=== PATIENT | female | born 1945 | race Caucasian/White ===

== ENCOUNTER 2021-09-28 11:54 | Observation (INO) | payer MEDICARE ==
--- NOTE | 2021-09-28 12:17 | XRAY ---
Indication: Facial weakness. Speech problems. Stroke. Multiple contiguous axial images obtained through the head without contrast. Comparison: December 31, 2011. Age-appropriate global atrophy and minimal periventricular degenerative micro-ischemia bilaterally. No acute intracranial hemorrhage, abnormal extra-axial fluid collection, or mass effect. Fourth ventricle is midline without hydrocephalus. Villagomez-white matter differentiation preserved. Bony calvarium intact. Paranasal sinuses and mastoid air cells are clear. Impression: Nonacute senile brain.
--- NOTE | 2021-09-28 12:40 | ERPHSYRPT ---
- History of Present Illness Source: patient, EMS Exam Limitations: clinical condition Patient Subjective Stated Complaint: Ems states "She was at [employer] eating and she started to stare off so an employee tried to speak to her and she would not respond, she was slurring her speech at first and she got better and better as we were coming here." Triage Nursing Assessment: PT presented alert and oriented X 3, skin wpd Pt able to speak in full sentences. Pt speech slightly slurred. pt in no apparent respiratory distress. PT resting comfortably on the bed. Physician History: 76 yo wf w acute mental status changes w expressive aphasia while at [facility] before arrival w rapidly improving symptoms. Pt is alert and oriented to Name/place but not time. She is in Afib and states that she is taking a anticoagulant. Pt wo focal weakness or pronator drift upon arrival. Timing/Duration: other (Resolving prior to arrival) Character of Deficits: other (Mild confusion) Deficits: no difficulties Baseline/Normal Cognition: alert oriented x 3 Current Cognition: alert but confused Associated Symptoms: confusion, loss of consciousness, No fatigue, No fever, No chills, No nausea, No vomiting, No weakness, No insomnia, No muscle spasms, No numbness/tingling in legs/feet, No paresthesia, No ringing in ears, No seizures, No slurred speech, No trouble walking, No vision changes, No chest pain, No head ache Allergies/Adverse Reactions: amitriptyline HCl [From Elavil] Allergy (Mild, Verified 12/31/11 19:40) MAKES FEEL FUNNY AND FLUSHED FACE Home Medications: Ezetimibe 10 mg [Zetia 10 MG] 10 mg PO DAILY 12/31/11 [History] Atorvastatin Calcium 40 mg PO QHS 09/28/21 [History] Buspirone HCl 5 mg [Buspar 5 mg] 5 mg PO BID 09/28/21 [History] Clopidogrel Bisulfate [Clopidogrel] 75 mg PO DAILY 09/28/21 [History] Metoprolol Tartrate 25 mg [Lopressor 25MG Tab] 25 mg PO BID 09/28/21 [History] Nitroglycerin 0.4 mg SL UD 09/28/21 [History] Pantoprazole Sodium 40 mg PO DAILY 09/28/21 [History] Quinapril HCl 10 mg [Accupril 10MG Tablet] 10 mg PO DAILY 09/28/21 [History] Hx Tetanus, Diphtheria Vaccination/Date Given: No Hx Influenza Vaccination/Date Given: Yes (FALL 2010) Hx Pneumococcal Vaccination/Date Given: Yes (2 YRS AGO) Immunizations Up to Date: Yes Travel Risk - International Travel Have you traveled outside of the country in past 3 weeks: No - Coronavirus Screening Are you exhibiting any of the following symptoms?: No Close contact with a COVID-19 positive Pt in past 14-21 Days: No - Vaccine Status Have you recieved a Covid-19 vaccination: Yes 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 - Vaccination Dates Date of 2cond Vaccination (if applicable): 2020 - Review of Systems Constitutional: No Symptoms Eyes: No Symptoms Ears, Nose, & Throat: No Symptoms Respiratory: No Symptoms Cardiac: No Symptoms Abdominal/Gastrointestinal: No Symptoms Genitourinary Symptoms: No Symptoms Musculoskeletal: No Symptoms Skin: No Symptoms Neurological: Speech Changes, No Dizziness, No Focal Weakness, No Gait Changes, No Headache, No Irritability, No Lethargy, No Paralysis, No Parasthesia, No Seizure, No Sensory Changes, No Tics, No Tremors, No Vertigo Psychological: No Symptoms Endocrine: No Symptoms Hematologic/Lymphatic: No Symptoms Immunological/Allergic: No Symptoms - Past Medical History Pertinent Past Medical History: Yes Neurological History: No Pertinent History ENT History: Cataracts, Macular Degeneration Cardiac History: High Cholesterol, Hypertension Respiratory History: Asthma Endocrine Medical History: Diabetes Type II Musculoskeletal History: Fibromyalgia GI Medical History: GERD History: No Pertinent History Psycho-Social History: Depression Female Reproductive Disorders: No Pertinent History Other Medical History: SOJGRENS SYNDROME - Past Surgical History Past Surgical History: No Neuro Surgical History: No Pertinent History Cardiac: No Pertinent History Respiratory: No Pertinent History Gastrointestinal: No Pertinent History Genitourinary: No Pertinent History Musculoskeletal: No Pertinent History Female Surgical History: No Pertinent History - Social History Smoking Status: Former smoker Exposure to second hand smoke: No Drug Use: none Patient Lives Alone: Yes Significant Family History: no pertinent family hx - Nursing Vital Signs Nursing Vital Signs: Initial Vital Signs Temperature 97.5 F 09/28/21 11:56 Pulse Rate 93 H 09/28/21 11:56 Respiratory Rate 09/28/21 11:56 Blood Pressure 136/93 09/28/21 11:56 O2 Sat by Pulse Oximetry 95 09/28/21 11:56 Pain Scale Pain Intensity 0 WNL - Jenny Coma Scale Best Eye Response (Jenny): (4) open spontaneously Best Verbal Response (Jenny): (4) confused conversation Best Motor Response (Jenny): (6) obeys commands [place] Total: 14 - Physical Exam General Appearance: no apparent distress Eye Exam: bilateral eye: normal inspection, PERRL, EOMI Ears, Nose, Throat Exam: normal ENT inspection, TMs normal, pharynx normal, moist mucous membranes Neck Exam: normal inspection, non-tender, supple, full range of motion, No meningismus, No mass, No Brudzinski, No Kernig's, No carotid bruit Respiratory: normal breath sounds, lungs clear, airway intact Cardiovascular: capillary refill <2 sec, other (Ir-Ir) Gastrointestinal: soft, normal bowel sounds Back Exam: normal inspection, normal range of motion, No CVA tenderness, No vertebral tenderness Extremity Exam: normal inspection, normal range of motion Peripheral Pulses: carotid (R): 2+, carotid (L): 2+ Mental Status: 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, 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, 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: normal hearing, normal speech, PERRL, No abnormal eye position, No abnormal gag reflex, No abnormal pupil position, No abnormal speech, No facial asymmetry, No facial droop, No facial paresthesias, No facial weakness, No gaze palsy, No hearing deficit (R), No hearing deficit (L), No tongue deviation to R, No tongue deviation to L, No tongue midline Coordination/Gait: normal finger to nose, normal cerebellar function, negative Romberg's sign Motor/Sensory: no motor deficit, no sensory deficit, no pronator drift, negative Babinski's sign, No pronator drift (R), No pronator drift (L), No sensory deficit, No weak motor strength RUE, No weak motor strength LUE, No weak motor strength RLE, No weak motor strength LLE DTR: bicep (R): 2+, bicep (L): 2+, knee (R): 2+, knee (L): 2+ Skin Exam: normal color, warm, dry SpO2 Interpretation: normal SpO2: 95 O2 Delivery: Room Air - Course Nursing assessment & vital signs reviewed: Yes EKG Interpreted by Me: RATE (Afib/R97/Normal QT-QTc/Low voltage/Flat Twaves/No acute ST changes) - CT Exams Head CT Interpretation: Discussed w/radiologist (No intra-cranial bleed/Infarct) Ordered Tests: Active Orders 24 hr Category Date Time Status EKG-ER Only STAT Care 09/28/21 12:17 Completed IV Insertion STAT Care 09/28/21 12:17 Completed Consult Tele-Health [Tele-Health Consult] ROUTINE Cons 09/28/21 13:15 Completed Clear Liquid Diet 09/28/21 Breakfast Active HEAD WITHOUT CONTRAST [CT] Stat Exams 09/28/21 11:55 Completed MRA BRAIN WITHOUT CONTRAST [MRI] Stat Exams 09/28/21 12:31 Completed MRI BRAIN W/O CONTRAST [MRI] Stat Exams 09/28/21 12:30 Completed CBC W DIFF AM.LAB Lab 09/29/21 04:00 Ordered CBC W DIFF Stat Lab 09/28/21 11:23 Completed CMP AM.LAB Lab 09/29/21 04:00 Ordered CMP Stat Lab 09/28/21 11:23 Completed CULTURE,URINE Stat Lab 09/28/21 15:03 Received PROTIME WITH INR Stat Lab 09/28/21 11:23 Completed PTT Stat Lab 09/28/21 11:23 Completed TROPONIN Q3H Lab 09/28/21 11:23 Completed TROPONIN Q3H Lab 09/28/21 16:55 Completed TROPONIN Q3H Lab 09/28/21 18:25 Completed TROPONIN Q3H Lab 09/28/21 21:45 Completed TROPONIN Q3H Lab 09/29/21 00:30 Ordered UA W/RFX CULTURE Stat Lab 09/28/21 15:03 Completed Transfer Order Routine Transfer 09/28/21 Completed Medication Summary Generic Name Dose Route Start Last Admin Trade Name Freq PRN Reason Stop Dose Admin Buspirone HCl 5 mg 09/28/21 22:00 09/28/21 21:56 Buspirone Hcl 5 Mg Tablet PO 10/28/21 21:59 5 mg BID PATTI Administration Sodium Chloride 1,000 mls @ 0 mls/hr 09/28/21 17:30 Sodium Chloride 0.9% 1000 Ml IV 10/28/21 17:29 .Q0M PATTI KVO Metoprolol Tartrate 25 mg 09/28/21 22:00 09/28/21 21:56 Metoprolol Tartrate 25 Mg Tab PO 10/28/21 21:59 25 mg BID PATTI Administration Ondansetron HCl 4 mg 09/28/21 17:29 Ondansetron Hcl 4 Mg/2 Ml Vial IV 10/28/21 17:28 Q6H PRN PRN NAUSEA/VOMITING Simvastatin 40 mg 09/28/21 22:00 09/28/21 21:56 Simvastatin 20 Mg Tablet PO 10/28/21 21:59 40 mg HS PATTI Administration Discontinued Medications Generic Name Dose Route Start Last Admin Trade Name Freq PRN Reason Stop Dose Admin Metoprolol Tartrate 25 mg 09/28/21 16:45 09/28/21 16:48 Metoprolol Tartrate 25 Mg Tab PO 09/28/21 16:46 25 mg STAT ONE Administration Metoprolol Tartrate Confirm 09/28/21 16:47 Metoprolol Tartrate 25 Mg Tab Administered 09/28/21 16:48 Dose 25 mg .ROUTE .STK-MED ONE Quinapril HCl 10 mg 09/28/21 16:46 09/28/21 16:52 Quinapril 10mg Tab PO 09/28/21 16:47 10 mg STAT ONE Administration Rivaroxaban 20 mg 09/28/21 17:00 09/28/21 17:12 Rivaroxaban 10 Mg Tablet PO 09/28/21 17:01 20 mg STAT ONE Administration Trimethoprim/Sulfamethoxazole 1 tab 09/28/21 18:53 09/28/21 18:57 Smz/Tmp Ds Tablet 1 Tablet PO 09/28/21 18:54 1 tab STAT STA Administration Trimethoprim/Sulfamethoxazole Confirm 09/28/21 18:56 Smz/Tmp Ds Tablet 1 Tablet Administered 09/28/21 18:57 Dose 1 tab PO .STK-MED ONE Lab/Rad Data: Laboratory Result Diagrams 09/28/21 11:23 09/28/21 11:23 Laboratory Results 09/28/21 09/28/21 09/28/21 Range/Units 18:25 16:55 16:50 WBC (4.0-10.5) K/mm3 RBC (4.1-5.4) M/mm3 Hgb (12.0-16.0) gm/dl Hct (35-47) % MCV (78-100) fl MCH (26-32) pg MCHC (32-36) g/dl RDW (11.5-14.0) % Plt Count (150-450) K/mm3 MPV (7.5-11.0) fl Gran % (36.0-66.0) % Eos # (Auto) (0-0.5) Absolute Lymphs (auto) (1.0-4.6) Absolute Monos (auto) (0.0-1.3) Lymphocytes % (24.0-44.0) % Monocytes % (0.0-12.0) % Eosinophils % (0.00-5.0) % Basophils % (0.0-0.4) % Absolute Granulocytes (1.4-6.9) Basophils # (0-0.4) PT (9.4-12.5) SECONDS INR (0.8-3.0) APTT (25.1-36.5) SECONDS Sodium (137-145) mmol/L Potassium (3.5-5.1) mmol/L Chloride (98-107) mmol/L Carbon Dioxide (22-30) mmol/L Anion Gap (5-15) MEQ/L BUN (7-17) mg/dL Creatinine (0.52-1.04) mg/dL Estimated GFR ML/MIN Glucose (74-106) mg/dL Calcium (8.4-10.2) mg/dL Total Bilirubin (0.2-1.3) mg/dL AST (14-36) U/L ALT (0-35) U/L Alkaline Phosphatase (38-126) U/L Troponin I < 0.012 < 0.012 (0.000-0.034) ng/mL Serum Total Protein (6.3-8.2) g/dL Albumin (3.5-5.0) g/dL Urinalys Dipstick Clnc Urine Color (YELLOW) Urine Appearance (CLEAR) Urine pH (5-6) Ur Specific [place] (1.005-1.025) POC Urine Protein Conf (Negative) Urine Ketones (NEGATIVE) Urine Nitrite (NEGATIVE) Urine Bilirubin (NEGATIVE) Urine Urobilinogen (0-1) mg/dL Urine Leukocytes (NEGATIVE) Urine WBC (Auto) (0-5) /HPF Urine RBC (Auto) (0-2) /HPF U Epithel Cells (Auto) (FEW) /HPF Urine Bacteria (Auto) (NEGATIVE) /HPF Urine RBC (0-5) Marcial/ul Urine Mucus (Auto) (NEGATIVE) /HPF Ur Culture Indicated? Urine Glucose (NEGATIVE) mg/dL Influenza Type A Ag NEGATIVE (NEGATIVE) Influenza Type B Ag NEGATIVE (NEGATIVE) RSV (PCR) NEGATIVE (Negative) SARS-CoV-2 (PCR) NEGATIVE (NEGATIVE) 09/28/21 09/28/21 09/28/21 Range/Units 15:03 11:23 11:23 WBC (4.0-10.5) K/mm3 RBC (4.1-5.4) M/mm3 Hgb (12.0-16.0) gm/dl Hct (35-47) % MCV (78-100) fl MCH (26-32) pg MCHC (32-36) g/dl RDW (11.5-14.0) % Plt Count (150-450) K/mm3 MPV (7.5-11.0) fl Gran % (36.0-66.0) % Eos # (Auto) (0-0.5) Absolute Lymphs (auto) (1.0-4.6) Absolute Monos (auto) (0.0-1.3) Lymphocytes % (24.0-44.0) % Monocytes % (0.0-12.0) % Eosinophils % (0.00-5.0) % Basophils % (0.0-0.4) % Absolute Granulocytes (1.4-6.9) Basophils # (0-0.4) PT 10.6 (9.4-12.5) SECONDS INR 1.00 (0.8-3.0) APTT 23.9 L (25.1-36.5) SECONDS Sodium (137-145) mmol/L Potassium (3.5-5.1) mmol/L Chloride (98-107) mmol/L Carbon Dioxide (22-30) mmol/L Anion Gap (5-15) MEQ/L BUN (7-17) mg/dL Creatinine (0.52-1.04) mg/dL Estimated GFR ML/MIN Glucose (74-106) mg/dL Calcium (8.4-10.2) mg/dL Total Bilirubin (0.2-1.3) mg/dL AST (14-36) U/L ALT (0-35) U/L Alkaline Phosphatase (38-126) U/L Troponin I < 0.012 (0.000-0.034) ng/mL Serum Total Protein (6.3-8.2) g/dL Albumin (3.5-5.0) g/dL Urinalys Dipstick Clnc MAIN LAB Urine Color YELLOW (YELLOW) Urine Appearance CLEAR (CLEAR) Urine pH 7.0 (5-6) Ur Specific [place] 1.015 (1.005-1.025) POC Urine Protein Conf NEGATIVE (Negative) Urine Ketones NEGATIVE (NEGATIVE) Urine Nitrite NEGATIVE (NEGATIVE) Urine Bilirubin NEGATIVE (NEGATIVE) Urine Urobilinogen 0.2 (0-1) mg/dL Urine Leukocytes SMALL (NEGATIVE) Urine WBC (Auto) 11-15 (0-5) /HPF Urine RBC (Auto) NONE (0-2) /HPF U Epithel Cells (Auto) RARE (FEW) /HPF Urine Bacteria (Auto) NONE SEEN (NEGATIVE) /HPF Urine RBC NEGATIVE (0-5) Marcial/ul Urine Mucus (Auto) SLIGHT (NEGATIVE) /HPF Ur Culture Indicated? YES Urine Glucose NEGATIVE (NEGATIVE) mg/dL Influenza Type A Ag (NEGATIVE) Influenza Type B Ag (NEGATIVE) RSV (PCR) (Negative) SARS-CoV-2 (PCR) (NEGATIVE) 09/28/21 09/28/21 Range/Units 11:23 11:23 WBC 7.5 (4.0-10.5) K/mm3 RBC 5.06 (4.1-5.4) M/mm3 Hgb 13.7 (12.0-16.0) gm/dl Hct 44.6 (35-47) % MCV 88.1 (78-100) fl MCH 27.1 (26-32) pg MCHC 30.7 L (32-36) g/dl RDW 16.6 H (11.5-14.0) % Plt Count 301 (150-450) K/mm3 MPV 10.5 (7.5-11.0) fl Gran % 66.2 H (36.0-66.0) % Eos # (Auto) 0.18 (0-0.5) Absolute Lymphs (auto) 1.49 (1.0-4.6) Absolute Monos (auto) 0.84 (0.0-1.3) Lymphocytes % 20.0 L (24.0-44.0) % Monocytes % 11.3 (0.0-12.0) % Eosinophils % 2.4 (0.00-5.0) % Basophils % 0.1 (0.0-0.4) % Absolute Granulocytes 4.94 (1.4-6.9) Basophils # 0.01 (0-0.4) PT (9.4-12.5) SECONDS INR (0.8-3.0) APTT (25.1-36.5) SECONDS Sodium 137 (137-145) mmol/L Potassium 4.1 (3.5-5.1) mmol/L Chloride 103 (98-107) mmol/L Carbon Dioxide 24 (22-30) mmol/L Anion Gap 13.6 (5-15) MEQ/L BUN 15 (7-17) mg/dL Creatinine 0.59 (0.52-1.04) mg/dL Estimated GFR > 60.0 ML/MIN Glucose 130 H (74-106) mg/dL Calcium 9.2 (8.4-10.2) mg/dL Total Bilirubin 0.80 (0.2-1.3) mg/dL AST 30 (14-36) U/L ALT 15 (0-35) U/L Alkaline Phosphatase 184 H (38-126) U/L Troponin I (0.000-0.034) ng/mL Serum Total Protein 8.8 H (6.3-8.2) g/dL Albumin 4.5 (3.5-5.0) g/dL Urinalys Dipstick Clnc Urine Color (YELLOW) Urine Appearance (CLEAR) Urine pH (5-6) Ur Specific [place] (1.005-1.025) POC Urine Protein Conf (Negative) Urine Ketones (NEGATIVE) Urine Nitrite (NEGATIVE) Urine Bilirubin (NEGATIVE) Urine Urobilinogen (0-1) mg/dL Urine Leukocytes (NEGATIVE) Urine WBC (Auto) (0-5) /HPF Urine RBC (Auto) (0-2) /HPF U Epithel Cells (Auto) (FEW) /HPF Urine Bacteria (Auto) (NEGATIVE) /HPF Urine RBC (0-5) Marcial/ul Urine Mucus (Auto) (NEGATIVE) /HPF Ur Culture Indicated? Urine Glucose (NEGATIVE) mg/dL Influenza Type A Ag (NEGATIVE) Influenza Type B Ag (NEGATIVE) RSV (PCR) (Negative) SARS-CoV-2 (PCR) (NEGATIVE) - Progress Progress: improved Progress Note: 09/28/21 14:44 Pt w rapidly improving symptoms and possible on anticoagulant, so TPA not given Neuro consult, believes that Ct demonstrates R frontal lobe infarct/Agrees w no TPA since no focal weakness and pt at baseline/Agrees w MRI-MRA brain/Questions why no anticoagulant for Afib 09/28/21 16:51 MRA brain-nothing acute MRI brain-acute micro-ischemia L insula and lesser degree L periventricular white matter 09/28/21 17:01 Xarelto 20mg po x1 09/28/21 17:[address] Heart 09/28/21 17:34 Obs orders entered 09/28/21 18:53 Bactrim DS po x1 for UTI Counseled pt/family regarding: lab results, diagnosis, need for follow-up, rad results - Departure Departure Disposition: Observation Clinical Impression: CVA (cerebral vascular accident), UTI (urinary tract infection) Condition: Stable Critical Care Time: Yes Critical Care Time(excluding separately billable procedures): Critical 30-74 mins
[2021-09-28 12:43] LABS: Absolute Neutrophil Ct (ANC) 4.94 (1.4-6.9); Basophil (Absolute #) 0.01 (0-0.4); Eosinophil % 2.4 % (0.00-5.0); Eosinophil (Absolute #) 0.18 (0-0.5); Hematocrit 44.6 % (35-47); Hemoglobin 13.7 gm/dl (12.0-16.0); Lymphocyte (Absolute #) 1.49 (1.0-4.6); Mean Cell Volume 88.1 fl (78-100); Mean Corpuscular Hemoglobin 27.1 pg (26-32); Mean Corpuscular Hgb Concent. 30.7 g/dl (32-36); Mean Platelet Volume 10.5 fl (7.5-11.0); Monocyte (Absolute #) 0.84 (0.0-1.3); Monocytes % 11.3 % (0.0-12.0); Neutrophil % 66.2 % (36.0-66.0); Platelet Count 301 K/mm3 (150-450); Red Blood Count 5.06 M/mm3 (4.1-5.4); Red Cell Distribution Width 16.6 % (11.5-14.0); White Blood Count 7.5 K/mm3 (4.0-10.5)
[2021-09-28 12:44] LABS: PROTIME 10.6 SECONDS (9.4-12.5); PTT 23.9 SECONDS (25.1-36.5)
[2021-09-28 12:48] LABS: ALBUMIN 4.5 g/dL (3.5-5.0); ALKALINE PHOSPHATASE 184 U/L (38-126); ANION GAP 13.6 MEQ/L (5-15); BLOOD UREA NITROGEN 15 mg/dL (7-17); CHLORIDE 103 mmol/L (98-107); Calcium 9.2 mg/dL (8.4-10.2); Carbon Dioxide 24 mmol/L (22-30); Creatinine 1 0.59 mg/dL (0.52-1.04); EST GLOMERULAR FILTRATION RATE > 60.0 ML/MIN; Glucose 130 mg/dL (74-106); Potassium 4.1 mmol/L (3.5-5.1); SGOT/AST 30 U/L (14-36); SGPT/ALT 15 U/L (0-35); SODIUM 137 mmol/L (137-145); Total Protein 8.8 g/dL (6.3-8.2)
[2021-09-28 15:11] LABS: Appearance CLEAR (CLEAR); Bilirubin NEGATIVE (NEGATIVE); Glucose NEGATIVE (NEGATIVE); Ketones NEGATIVE (NEGATIVE); Protein,Urine Dip NEGATIVE (Negative); RBC NEGATIVE Ery/ul (0-5); Specific Gravity 1.015 (1.005-1.025)
[2021-09-28 15:12] LABS: Dipstick done @ ? MAIN LAB; Nitrite NEGATIVE (NEGATIVE); Urobilinogen 0.2 mg/dL (0-1)
[2021-09-28 15:14] LABS: Epithelial Cells RARE /HPF (FEW); Mucus SLIGHT /HPF (NEGATIVE)
[2021-09-28 15:27] LABS: Bacteria NONE SEEN /HPF (NEGATIVE)
[2021-09-28 15:28] LABS: Urine Cultured Indicated? YES
--- NOTE | 2021-09-28 16:23 | XRAY ---
Indication: Difficulty speaking. TIA. Negative same day CT head exam. Multi-slab 3-D [id number] MRA [place] performed. Comparison: None Distal internal carotid arteries are bilaterally symmetric without critical stenosis, obstruction, or AV malformation. Normal carotid terminus with normal branching A1 and M1 segments bilaterally. More distal anterior cerebral and middle cerebral arteries are normal in MRA appearance. Anatomic variant for origin left posterior cerebral artery. Posterior circulation demonstrates distal right vertebral artery slightly larger in caliber. Normal MRA appearance to the basilar, right posterior cerebral, and left/right superior cerebellar arteries. Impression: Anatomic variant for origin left posterior cerebral artery. Remaining MRA [place] is negative.
[2021-09-28] MEDS ORDERED: Lopressor 25MG Tab PO ONE (16:45)
[2021-09-28] MEDS ORDERED: Accupril 10MG Tablet PO ONE (16:46)
[2021-09-28] MEDS ORDERED: Lopressor 25MG Tab ONE (16:47)
--- NOTE | 2021-09-28 16:51 | XRAY ---
Indication: Difficulty speaking. TIA. Negative same day CT head exam. Sagittal, coronal, and axial MRI brain performed without contrast using T1, T2, FLAIR, diffusion, and ADC sequences. Comparison: None Age-appropriate global atrophy and mild periventricular degenerative micro-ischemia signal bilaterally. No acute intracranial hemorrhage, abnormal extra-axial fluid collection, or mass effect. Diffusion images demonstrates 7-8mm focus of restricted signal left insula and lesser degree left mid periventricular white matter favoring acute micro-ischemia. Fourth ventricle is midline without hydrocephalus. 7/8 cranial nerve complex bilaterally symmetric. Normal flow void signal within the major intracerebral circulation. Normal appearing craniocervical junction and sella turcica. Paranasal sinuses are clear. Impression: 1. Tiny subcentimeter focus acute micro-ischemia left insula and lesser degree left periventricular white matter. No acute hemorrhage or mass effect. 2. Atrophy and degenerative micro-ischemia within normal limits for patient's age.
[2021-09-28] MEDS ORDERED: XARELTO 10 MG TABLET PO ONE (17:00)
[2021-09-28] MEDS ORDERED: Zofran 4 MG/2 ML VIAL IV PRN (17:29)
[2021-09-28] MEDS ORDERED: Sodium Chloride 0.9% 1000 ML 1,000 ML IV SCH (17:30)
[2021-09-28 18:08] LABS: INFLUENZA A NEGATIVE (NEGATIVE); INFLUENZA B NEGATIVE (NEGATIVE); RESPIRATORY SYNCTIAL VIRUS NEGATIVE (Negative); SARS-CoV-2 Xpert Express NEGATIVE (NEGATIVE)
[2021-09-28] MEDS ORDERED: BACTRIM DS TABLET PO STA (18:53)
[2021-09-28] MEDS ORDERED: BACTRIM DS TABLET PO ONE (18:56)
[2021-09-28] MEDS: BUSPAR 5 MG PO SCH (21:56)
[2021-09-28] MEDS: Lopressor 25MG Tab PO SCH (21:56)
[2021-09-28] MEDS ORDERED: ZOCOR 20MG PO SCH (22:00)
[2021-09-29 05:11] LABS: Absolute Neutrophil Ct (ANC) 5.48 (1.4-6.9); Basophil (Absolute #) 0.01 (0-0.4); Eosinophil % 2.9 % (0.00-5.0); Eosinophil (Absolute #) 0.23 (0-0.5); Hematocrit 41.2 % (35-47); Hemoglobin 12.7 gm/dl (12.0-16.0); Lymphocyte (Absolute #) 1.23 (1.0-4.6); Lymphocytes % 15.7 % (24.0-44.0); Mean Cell Volume 87.3 fl (78-100); Mean Corpuscular Hemoglobin 26.9 pg (26-32); Mean Corpuscular Hgb Concent. 30.8 g/dl (32-36); Mean Platelet Volume 10.6 fl (7.5-11.0); Monocyte (Absolute #) 0.88 (0.0-1.3); Monocytes % 11.2 % (0.0-12.0); Neutrophil % 70.1 % (36.0-66.0); Platelet Count 282 K/mm3 (150-450); Red Blood Count 4.72 M/mm3 (4.1-5.4); Red Cell Distribution Width 16.5 % (11.5-14.0); White Blood Count 7.8 K/mm3 (4.0-10.5)
[2021-09-29 05:31] LABS: ALBUMIN 3.8 g/dL (3.5-5.0); ALKALINE PHOSPHATASE 140 U/L (38-126); ANION GAP 13.3 MEQ/L (5-15); BLOOD UREA NITROGEN 13 mg/dL (7-17); CHLORIDE 104 mmol/L (98-107); Calcium 8.8 mg/dL (8.4-10.2); Carbon Dioxide 22 mmol/L (22-30); Creatinine 1 0.62 mg/dL (0.52-1.04); EST GLOMERULAR FILTRATION RATE > 60.0 ML/MIN; Glucose 98 mg/dL (74-106); Potassium 4.2 mmol/L (3.5-5.1); SGOT/AST 28 U/L (14-36); SGPT/ALT 13 U/L (0-35); SODIUM 135 mmol/L (137-145); Total Protein 7.4 g/dL (6.3-8.2)
[2021-09-29] MEDS ORDERED: Nitrostat 0.4 MG Tablet SL PRN (07:15)
[2021-09-29] MEDS: Lopressor 25MG Tab PO SCH (09:04)
[2021-09-29] MEDS: BUSPAR 5 MG PO SCH (09:04)
[2021-09-29] MEDS ORDERED: Protonix 40MG Tablet PO SCH (10:00)
[2021-09-29] MEDS ORDERED: PLAVIX Tablet PO SCH (10:00)
[2021-09-29] MEDS ORDERED: Accupril 10MG Tablet PO SCH (10:00)
[2021-09-29] MEDS ORDERED: Zetia 10 MG PO SCH (10:00)
[2021-09-29 11:17] VITALS: BP 129/78; PULSE 87; O2SAT 97
[2021-09-29] MEDS ORDERED: ELIQUIS 2.5 MG TABLET PO STA (12:22)
--- NOTE | 2021-09-29 12:33 | XRAY ---
Indication: CVA. Two-dimensional sonogram and color Doppler imaging of the carotid arteries of the neck performed. Comparison: None Examination of the right carotid circulation demonstrates very minimal soft plaquing in the common carotid and proximal internal carotid arteries. Very minimal calcified plaquing at the level of bulb. PSV of the CCA is 54 cm/s. PSV of the ICA is 69 cm/s. ICA/CCA ratio is 1.3. Normal antegrade vertebral artery flow. Examination of the left carotid circulation demonstrates very minimal soft plaquing at the level of the bulb and proximal external carotid artery. Remaining common carotid and internal carotid artery widely patent. PSV of the CCA is 60 cm/s. PSV of the ICA is 63 cm/s. ICA/CCA ratio is 1.1. Normal antegrade vertebral artery flow. Impression: Very minimal arteriosclerotic plaquing bilaterally as detailed. Velocity measurements and ratios are negative for hemodynamically significant flow-limiting stenosis.
[2021-09-29] MEDS ORDERED: ELIQUIS 2.5 MG TABLET PO ONE (13:00)
--- NOTE | 2021-09-29 17:30 | PCM.SSS ---
History of Present Illness - Chief Complaint Chief Complaint: suddent aphasia for few minutes History of Present Illness: is a 76 year old female.w acute mental status changes w expressive aphasia while at [facility] before arrival w rapidly improving symptoms. Pt is alert and oriented to Name/place but not time. She is in Afib and states that she is taking a anticoagulant. Pt wo focal weakness or pronator drift upon arrival. Timing/Duration: other (Resolving prior to arrival). Patient states that she just could not figure out how to use fork and knife to cut burger. Character of Deficits: other (Mild confusion) Deficits: no difficulties Baseline/Normal Cognition: alert oriented x 3 Current Cognition: alert but confused Associated Symptoms: confusion, loss of consciousness, No fatigue, No fever, No chills, No nausea, No vomiting, No weakness, No insomnia, No muscle spasms, No numbness/tingling in legs/feet, No paresthesia, No ringing in ears, No seizures, No slurred speech, No trouble walking, No vision changes, No chest pain, No headache Patient was on xarelto but her insurance stop paying for it recently so she stop ped taking it - Review of Systems Constitutional: No Fever, No Chills Eyes: No Symptoms Ears, Nose, & Throat: No Symptoms Respiratory: No Cough, No Short Of Breath Cardiac: No Chest Pain, No Edema, No Syncope Abdominal/Gastrointestinal: No Abdominal Pain, No Nausea, No Vomiting, No Diarrhea Genitourinary Symptoms: No Dysuria Musculoskeletal: No Back Pain, No Neck Pain Skin: No Rash Neurological: Focal Weakness, Speech Changes, No Dizziness, No Sensory Changes Psychological: No Symptoms Endocrine: No Symptoms Hematologic/Lymphatic: No Symptoms Immunological/Allergic: No Symptoms Medications & Allergies Home Medications: Home Medication List Ezetimibe 10 mg [Zetia 10 MG] 10 mg PO DAILY 12/31/11 [History Confirmed 09/28/21] Atorvastatin Calcium 40 mg PO QHS 09/28/21 [History Confirmed 09/28/21] Buspirone HCl 5 mg [Buspar 5 mg] 5 mg PO BID 09/28/21 [History Confirmed 09/28/21] Clopidogrel Bisulfate [Clopidogrel] 75 mg PO DAILY 09/28/21 [History Confirmed 09/28/21] Metoprolol Tartrate 25 mg [Lopressor 25MG Tab] 25 mg PO BID 09/28/21 [History Confirmed 09/28/21] Nitroglycerin 0.4 mg SL UD 09/28/21 [History Confirmed 09/28/21] Pantoprazole Sodium 40 mg PO DAILY 09/28/21 [History Confirmed 09/28/21] Quinapril HCl 10 mg [Accupril 10MG Tablet] 10 mg PO DAILY 09/28/21 [History Confirmed 09/28/21] Apixaban [Eliquis 5 mg Tablet] 5 mg PO BID #60 tablet 09/29/21 [Rx] Allergies/Adverse Reactions: Allergies Allergy/AdvReac Type Severity Reaction Status Date / Time amitriptyline HCl Allergy Mild Verified 12/31/11 19:40 [From [facility]] - Past Medical History Past Medical History: Yes Neurological History: No Pertinent History ENT History: Cataracts, Macular Degeneration Cardiac History: High Cholesterol, Hypertension Respiratory History: Asthma Endocrine Medical History: Diabetes Type II Musculoskelatal History: Fibromyalgia GI Medical History: GERD History: No Pertinent History Pyscho-Social History: Depression Reproductive Disorders: No Pertinent History Comment: SOJGRENS SYNDROME - Past Surgical History Past Surgical History: No Neuro Surgical History: No Pertinent History Cardiac History: No Pertinent History Respiratory Surgery: No Pertinent History GI Surgical History: No Pertinent History Genitourinary Surgical Hx: No Pertinent History Musculskeletal Surgical Hx: No Pertinent History Female Surgical History: No Pertinent History - Social History Smoking Status: Former smoker Exposure to second hand smoke: No Alcohol: None Drug Use: none Significant Family History: no pertinent family hx - Physical Exam Vital Signs: Vital Signs - 24 hr Temp Pulse Resp BP Pulse Ox 09/29/21 11:16 97.7 F 87 16 129/78 97 09/29/21 08:00 97.8 F 89 19 126/66 95 09/29/21 04:00 97.6 F 79 18 106/64 98 09/29/21 00:00 95 09/28/21 23:41 97.5 F 60 18 117/59 97 09/28/21 20:29 97.7 F 59 L 20 156/91 97 General Appearance: no apparent distress, alert Neurologic Exam: alert, oriented x 3, cooperative, normal mood/affect, nml cerebellar function, nml station & gait, sensation nml, confusion, slurred spe ech, aphasia, No motor deficits Eye Exam: PERRL/EOMI, eyes nml inspection Ears, Nose, Throat Exam: normal ENT inspection, TMs normal, pharynx normal, moist mucous membranes Neck Exam: normal inspection, non-tender, supple, full range of motion Respiratory Exam: normal breath sounds, lungs clear, No respiratory distress Cardiovascular Exam: regular rate/rhythm, normal heart sounds, normal peripheral pulses Gastrointestinal/Abdomen Exam: soft, normal bowel sounds, No tenderness, No mass Back Exam: normal inspection, normal range of motion, No CVA tenderness, No vertebral tenderness Extremity Exam: normal inspection, normal range of motion, pelvis stable Skin Exam: normal color, warm, dry, No rash Lymphatic Exam: No adenopathy Results - Labs Lab/Micro Results: Lab Results-Last 24 Hours 09/28/21 09/28/21 09/28/21 Range/Units 15:03 16:50 16:55 WBC (4.0-10.5) K/mm3 RBC (4.1-5.4) M/mm3 Hgb (12.0-16.0) gm/dl Hct (35-47) % MCV (78-100) fl MCH (26-32) pg MCHC (32-36) g/dl RDW (11.5-14.0) % Plt Count (150-450) K/mm3 MPV (7.5-11.0) fl Gran % (36.0-66.0) % Eos # (Auto) (0-0.5) Absolute Lymphs (auto) (1.0-4.6) Absolute Monos (auto) (0.0-1.3) Lymphocytes % (24.0-44.0) % Monocytes % (0.0-12.0) % Eosinophils % (0.00-5.0) % Basophils % (0.0-0.4) % Absolute Granulocytes (1.4-6.9) Basophils # (0-0.4) Sodium (137-145) mmol/L Potassium (3.5-5.1) mmol/L Chloride (98-107) mmol/L Carbon Dioxide (22-30) mmol/L Anion Gap (5-15) MEQ/L BUN (7-17) mg/dL Creatinine (0.52-1.04) mg/dL Estimated GFR ML/MIN Glucose (74-106) mg/dL Calcium (8.4-10.2) mg/dL Total Bilirubin (0.2-1.3) mg/dL AST (14-36) U/L ALT (0-35) U/L Alkaline Phosphatase (38-126) U/L Troponin I < 0.012 (0.000-0.034) ng/mL Serum Total Protein (6.3-8.2) g/dL Albumin (3.5-5.0) g/dL Urinalys Dipstick Clal MAIN LAB Influenza Type A Ag NEGATIVE (NEGATIVE) Influenza Type B Ag NEGATIVE (NEGATIVE) RSV (PCR) NEGATIVE (Negative) SARS-CoV-2 (PCR) NEGATIVE (NEGATIVE) 09/28/21 09/28/21 09/29/21 Range/Units 18:25 21:45 01:05 WBC (4.0-10.5) K/mm3 RBC (4.1-5.4) M/mm3 Hgb (12.0-16.0) gm/dl Hct (35-47) % MCV (78-100) fl MCH (26-32) pg MCHC (32-36) g/dl RDW (11.5-14.0) % Plt Count (150-450) K/mm3 MPV (7.5-11.0) fl Gran % (36.0-66.0) % Eos # (Auto) (0-0.5) Absolute Lymphs (auto) (1.0-4.6) Absolute Monos (auto) (0.0-1.3) Lymphocytes % (24.0-44.0) % Monocytes % (0.0-12.0) % Eosinophils % (0.00-5.0) % Basophils % (0.0-0.4) % Absolute Granulocytes (1.4-6.9) Basophils # (0-0.4) Sodium (137-145) mmol/L Potassium (3.5-5.1) mmol/L Chloride (98-107) mmol/L Carbon Dioxide (22-30) mmol/L Anion Gap (5-15) MEQ/L BUN (7-17) mg/dL Creatinine (0.52-1.04) mg/dL Estimated GFR ML/MIN Glucose (74-106) mg/dL Calcium (8.4-10.2) mg/dL Total Bilirubin (0.2-1.3) mg/dL AST (14-36) U/L ALT (0-35) U/L Alkaline Phosphatase (38-126) U/L Troponin I < 0.012 < 0.012 < 0.012 (0.000-0.034) ng/mL Serum Total Protein (6.3-8.2) g/dL Albumin (3.5-5.0) g/dL Urinalys Dipstick Clnc Influenza Type A Ag (NEGATIVE) Influenza Type B Ag (NEGATIVE) RSV (PCR) (Negative) SARS-CoV-2 (PCR) (NEGATIVE) 09/29/21 09/29/21 Range/Units 04:30 04:30 WBC 7.8 (4.0-10.5) K/mm3 RBC 4.72 (4.1-5.4) M/mm3 Hgb 12.7 (12.0-16.0) gm/dl Hct 41.2 (35-47) % MCV 87.3 (78-100) fl MCH 26.9 (26-32) pg MCHC 30.8 L (32-36) g/dl RDW 16.5 H (11.5-14.0) % Plt Count 282 (150-450) K/mm3 MPV 10.6 (7.5-11.0) fl Gran % 70.1 H (36.0-66.0) % Eos # (Auto) 0.23 (0-0.5) Absolute Lymphs (auto) 1.23 (1.0-4.6) Absolute Monos (auto) 0.88 (0.0-1.3) Lymphocytes % 15.7 L (24.0-44.0) % Monocytes % 11.2 (0.0-12.0) % Eosinophils % 2.9 (0.00-5.0) % Basophils % 0.1 (0.0-0.4) % Absolute Granulocytes 5.48 (1.4-6.9) Basophils # 0.01 (0-0.4) Sodium 135 L (137-145) mmol/L Potassium 4.2 (3.5-5.1) mmol/L Chloride 104 (98-107) mmol/L Carbon Dioxide 22 (22-30) mmol/L Anion Gap 13.3 (5-15) MEQ/L BUN 13 (7-17) mg/dL Creatinine 0.62 (0.52-1.04) mg/dL Estimated GFR > 60.0 ML/MIN Glucose 98 (74-106) mg/dL Calcium 8.8 (8.4-10.2) mg/dL Total Bilirubin 0.80 (0.2-1.3) mg/dL AST 28 (14-36) U/L ALT 13 (0-35) U/L Alkaline Phosphatase 140 H (38-126) U/L Troponin I (0.000-0.034) ng/mL Serum Total Protein 7.4 (6.3-8.2) g/dL Albumin 3.8 (3.5-5.0) g/dL Urinalys Dipstick Clnc Influenza Type A Ag (NEGATIVE) Influenza Type B Ag (NEGATIVE) RSV (PCR) (Negative) SARS-CoV-2 (PCR) (NEGATIVE) Microbiology 09/28/21 15:03 Urine Culture - Preliminary Clean Catch Midstream NO GROWTH TO DATE - Radiology Impressions Radiology Exams & Impressions: Radiology Procedures Category Date Time Status CAROTID BILATERAL [US] Routine Exams 09/29/21 20:27 Completed ECHO W/2D AND DOPPLER [US] Stat Exams 09/29/21 20:27 Taken HEAD WITHOUT CONTRAST [CT] Stat Exams 09/28/21 11:55 Completed MRA BRAIN WITHOUT CONTRAST [MRI] Stat Exams 09/28/21 12:31 Completed MRI BRAIN W/O CONTRAST [MRI] Stat Exams 09/28/21 12:30 Completed MRI/MRI BRAIN W/O CONTRAST Indication: Difficulty speaking. TIA. Negative same day CT head exam. Sagittal, coronal, and axial MRI brain performed without contrast using T1, T2, FLAIR, diffusion, and ADC sequences. Comparison: None Age-appropriate global atrophy and mild periventricular degenerative micro-ischemia signal bilaterally. No acute intracranial hemorrhage, abnormal extra-axial fluid collection, or mass effect. Diffusion images demonstrates 7-8mm focus of restricted signal left insula and lesser degree left mid periventricular white matter favoring acute micro-ischemia. Fourth ventricle is midline without hydrocephalus. 7/8 cranial nerve complex bilaterally symmetric. Normal flow void signal within the major intracerebral circulation. Normal appearing craniocervical junction and sella turcica. Paranasal sinuses are clear. Impression: 1. Tiny subcentimeter focus acute micro-ischemia left insula and lesser degree left periventricular white matter. No acute hemorrhage or mass effect. 2. Atrophy and degenerative micro-ischemia within normal limits for patient's age. Assessment/Plan (1) Acute anterior circulation transient ischemic attack Status: Acute Code(s): G45.8 - OTH TRANSIENT CEREBRAL ISCHEMIC ATTACKS AND RELATED SYND (2) CVA (cerebral vascular accident) Status: Acute Qualifiers: CVA mechanism: embolism Precerebral and cerebral artery: middle cerebral artery Laterality of affected vessel: left Qualified Code(s): I63.412 - Cerebral infarction due to embolism of left middle cerebral artery Code(s): I63.9 - CEREBRAL INFARCTION, UNSPECIFIED (3) UTI (urinary tract infection) Status: Acute Qualifiers: Urinary tract infection type: acute cystitis Code(s): N39.0 - URINARY TRACT INFECTION, SITE NOT SPECIFIED Hospital Summary - Hospital Course Hospital Course: Chief Complaint Diagnosis suddent aphasia for few minutes Allergies Allergy/AdvReac Type Severity Reaction Status Date / Time amitriptyline HCl Allergy Mild Verified 12/31/11 19:40 [From Elavil] Vital Signs (Last 24 hours) Temp Pulse Resp BP Pulse Ox 09/29/21 11:16 97.7 F 87 16 129/78 97 09/29/21 08:00 97.8 F 89 19 126/66 95 09/29/21 04:00 97.6 F 79 18 106/64 98 09/29/21 00:00 95 09/28/21 23:41 97.5 F 60 18 117/59 97 09/28/21 20:29 97.7 F 59 L 20 156/91 97 Home Medications Medication Instructions Recorded Confirmed Last Taken Type Atorvastatin Calcium 40 mg PO QHS 09/28/21 09/28/21 09/27/21 22:00 History Buspirone HCl 5 mg [Buspar 5 5 mg PO BID 09/28/21 09/28/21 09/27/21 22:00 History mg] Clopidogrel Bisulfate [Clopidogrel] 75 mg PO DAILY 09/28/21 09/28/21 09/27/21 10:00 History Metoprolol Tartrate 25 mg 25 mg PO BID 09/28/21 09/28/21 09/27/21 22:00 History [Lopressor 25MG Tab] Nitroglycerin 0.4 mg SL UD 09/28/21 09/28/21 Unknown History Pantoprazole Sodium 40 mg PO DAILY 09/28/21 09/28/21 09/27/21 10:00 History Quinapril HCl 10 mg [Accupril 10 mg PO DAILY 09/28/21 09/28/21 09/27/21 10:00 History 10MG Tablet] Apixaban [Eliquis 5 mg 5 mg PO BID #60 tablet 09/29/21 Unknown Rx Tablet] Current Medications Discontinued Medications Generic Name Dose Route Start Last Admin Trade Name Freq PRN Reason Stop Dose Admin Apixaban 5 mg 09/29/21 12:22 09/29/21 12:28 Apixaban 2.5 Mg Tablet PO 09/29/21 12:23 5 mg BID STA Administration Apixaban 5 mg 09/29/21 22:00 Apixaban 2.5 Mg Tablet PO 10/29/21 21:59 BID PATTI Apixaban 5 mg 09/29/21 13:00 Apixaban 2.5 Mg Tablet PO 09/29/21 13:01 .STK-MED ONE Buspirone HCl 5 mg 09/28/21 22:00 09/29/21 09:04 Buspirone Hcl 5 Mg Tablet PO 10/28/21 21:59 5 mg BID PATTI Administration Clopidogrel Bisulfate 75 mg 09/29/21 10:00 09/29/21 09:04 Clopidogrel Bisulfate 75 Mg Tablet PO 10/29/21 09:59 75 mg DAILY PATTI Administration Ezetimibe 10 mg 09/29/21 10:00 09/29/21 09:04 Ezetimibe 10 Mg Tab PO 10/29/21 09:59 10 mg DAILY PATTI Administration Sodium Chloride 1,000 mls @ 0 mls/hr 09/28/21 17:30 Sodium Chloride 0.9% 1000 Ml IV 10/28/21 17:29 .Q0M PATTI KVO Metoprolol Tartrate 25 mg 09/28/21 16:45 09/28/21 16:48 Metoprolol Tartrate 25 Mg Tab PO 09/28/21 16:46 25 mg STAT ONE Administration Metoprolol Tartrate Confirm 09/28/21 16:47 Metoprolol Tartrate 25 Mg Tab Administered 09/28/21 16:48 Dose 25 mg .ROUTE .STK-MED ONE Metoprolol Tartrate 25 mg 09/28/21 22:00 09/29/21 09:04 Metoprolol Tartrate 25 Mg Tab PO 10/28/21 21:59 25 mg BID PATTI Administration Nitroglycerin 0.4 mg 09/29/21 07:15 Nitroglycerin 0.4 Mg Tablet Bottle SL 10/29/21 07:14 UD PRN Ondansetron HCl 4 mg 09/28/21 17:29 Ondansetron Hcl 4 Mg/2 Ml Vial IV 10/28/21 17:28 Q6H PRN PRN NAUSEA/VOMITING Pantoprazole Sodium 40 mg 09/29/21 10:00 09/29/21 09:04 Protonix (Pantoprazole) 40 Mg Tablet PO 10/29/21 09:59 40 mg DAILY PATTI Administration Quinapril HCl 10 mg 09/28/21 16:46 09/28/21 16:52 Quinapril 10mg Tab PO 09/28/21 16:47 10 mg STAT ONE Administration Quinapril HCl 10 mg 09/29/21 10:00 09/29/21 09:04 Quinapril 10mg Tab PO 10/29/21 09:59 10 mg DAILY PATTI Administration Rivaroxaban 20 mg 09/28/21 17:00 09/28/21 17:12 Rivaroxaban 10 Mg Tablet PO 09/28/21 17:01 20 mg STAT ONE Administration Simvastatin 40 mg 09/28/21 22:00 09/28/21 21:56 Simvastatin 20 Mg Tablet PO 10/28/21 21:59 40 mg HS PATTI Administration Trimethoprim/Sulfamethoxazole 1 tab 09/28/21 18:53 09/28/21 18:57 Smz/Tmp Ds Tablet 1 Tablet PO 09/28/21 18:54 1 tab STAT STA Administration Trimethoprim/Sulfamethoxazole Confirm 09/28/21 18:56 Smz/Tmp Ds Tablet 1 Tablet Administered 09/28/21 18:57 Dose 1 tab PO .STK-MED ONE Intake & Output (Last 24 hours) 09/27/21 09/28/21 09/29/21 09/30/21 11:59 11:59 11:59 11:59 Intake Total 420 120 Output Total 450 Balance -30 120 Weight 75.1 kg 76.6 kg Microbiology Results (Last 24 hours) 09/28/21 15:03 Clean Catch Midstream Urine Culture - Preliminary NO GROWTH TO DATE Laboratory Results (Last 24 hours) 09/29/21 09/29/21 09/29/21 04:30 04:30 01:05 WBC 7.8 RBC 4.72 Hgb 12.7 Hct 41.2 MCV 87.3 MCH 26.9 MCHC 30.8 L RDW 16.5 H Plt Count 282 MPV 10.6 Gran % 70.1 H Eos # (Auto) 0.23 Absolute Lymphs (auto) 1.23 Absolute Monos (auto) 0.88 Lymphocytes % 15.7 L Monocytes % 11.2 Eosinophils % 2.9 Basophils % 0.1 Absolute Granulocytes 5.48 Basophils # 0.01 Sodium 135 L Potassium 4.2 Chloride 104 Carbon Dioxide 22 Anion Gap 13.3 BUN 13 Creatinine 0.62 Estimated GFR > 60.0 Glucose 98 Calcium 8.8 Total Bilirubin 0.80 AST 28 ALT 13 Alkaline Phosphatase 140 H Troponin I < 0.012 Serum Total Protein 7.4 Albumin 3.8 Urinalys Dipstick Clnc Influenza Type A Ag Influenza Type B Ag RSV (PCR) SARS-CoV-2 (PCR) 09/28/21 09/28/21 09/28/21 21:45 18:25 16:55 WBC RBC Hgb Hct MCV MCH MCHC RDW Plt Count MPV Gran % Eos # (Auto) Absolute Lymphs (auto) Absolute Monos (auto) Lymphocytes % Monocytes % Eosinophils % Basophils % Absolute Granulocytes Basophils # Sodium Potassium Chloride Carbon Dioxide Anion Gap BUN Creatinine Estimated GFR Glucose Calcium Total Bilirubin AST ALT Alkaline Phosphatase Troponin I < 0.012 < 0.012 < 0.012 Serum Total Protein Albumin Urinalys Dipstick Clnc Influenza Type A Ag Influenza Type B Ag RSV (PCR) SARS-CoV-2 (PCR) 09/28/21 09/28/21 16:50 15:03 WBC RBC Hgb Hct MCV MCH MCHC RDW Plt Count MPV Gran % Eos # (Auto) Absolute Lymphs (auto) Absolute Monos (auto) Lymphocytes % Monocytes % Eosinophils % Basophils % Absolute Granulocytes Basophils # Sodium Potassium Chloride Carbon Dioxide Anion Gap BUN Creatinine Estimated GFR Glucose Calcium Total Bilirubin AST ALT Alkaline Phosphatase Troponin I Serum Total Protein Albumin Urinalys Dipstick Clnc MAIN LAB Influenza Type A Ag NEGATIVE Influenza Type B Ag NEGATIVE RSV (PCR) NEGATIVE SARS-CoV-2 (PCR) NEGATIVE Orders (Last 24 hours) Category Date Time Status Bedrest with BRP/BSC ROUTINE Activity 09/28/21 17:30 Completed Code Status Order ROUTINE Care 09/28/21 17:29 Completed IV Care Q6H Care 09/28/21 17:29 Completed Neuro Checks Q4H Care 09/28/21 17:[address] in Observation ROUTINE Care 09/28/21 17:29 Completed Vital Signs Q4H Care 09/28/21 17:29 Completed House Regular Diet Diet 09/29/21 Lunch Completed Discharge Routine Discharge 09/29/21 Ordered CAROTID BILATERAL [US] Routine Exams 09/29/21 20:27 Completed ECHO W/2D AND DOPPLER [US] Stat Exams 09/29/21 20:27 Taken CBC W DIFF AM.LAB Lab 09/29/21 04:30 Completed CMP AM.LAB Lab 09/29/21 04:30 Completed COVID/FLU/RSV Panel Stat Lab 09/28/21 16:50 Completed TROPONIN Q3H Lab 09/28/21 16:55 Completed TROPONIN Q3H Lab 09/28/21 18:25 Completed TROPONIN Q3H Lab 09/28/21 21:45 Completed TROPONIN Q3H Lab 09/29/21 01:05 Completed Apixaban [Eliquis 2.5 mg Tablet] Med 09/29/21 13:00 Discontinued 5 mg PO .STK-MED ONE Apixaban [Eliquis 2.5 mg Tablet] Med 09/29/21 22:00 Discontinued 5 mg PO BID Apixaban [Eliquis 2.5 mg Tablet] Med 09/29/21 12:22 Discontinued 5 mg PO BID STA Buspirone HCl 5 mg [Buspar 5 mg] Med 09/28/21 22:00 Discontinued 5 mg PO BID Clopidogrel Bisulfate [PLAVIX Tablet] Med 09/29/21 10:00 Discontinued 75 mg PO DAILY Ezetimibe 10 mg [Zetia 10 MG] Med 09/29/21 10:00 Discontinued 10 mg PO DAILY Metoprolol Tartrate 25 mg [Lopressor 25MG Tab] Med 09/28/21 16:47 Discontinued 25 mg .ROUTE .STK-MED ONE Metoprolol Tartrate 25 mg [Lopressor 25MG Tab] Med 09/28/21 22:00 Discontinued 25 mg PO BID Metoprolol Tartrate 25 mg [Lopressor 25MG Tab] Med 09/28/21 16:45 Discontinued 25 mg PO STAT ONE NaCl 0.9% 1000 ml [Sodium Chloride 0.9% 1000 ML] 1,000 Med 09/28/21 17:30 Discontinued ml IV KVO Nitroglycerin 0.4 mg Tablet [Nitrostat 0.4 MG Tablet Med 09/29/21 07:15 Discontinued ] 0.4 mg SL UD PRN Ondansetron HCl 4 mg/2 ml [Zofran 4 MG/2 ML VIAL] Med 09/28/21 17:29 Discontinued 4 mg IV Q6H PRN PRN PANTOPRAZOLE 40 mg Tablet [Protonix 40MG Tablet] Med 09/29/21 10:00 Discontinued 40 mg PO DAILY Quinapril HCl 10 mg [Accupril 10MG Tablet] Med 09/29/21 10:00 Discontinued 10 mg PO DAILY Quinapril HCl 10 mg [Accupril 10MG Tablet] Med 09/28/21 16:46 Discontinued 10 mg PO STAT ONE Rivaroxaban 10 mg Tablet [Xarelto 10 mg Tablet] Med 09/28/21 17:00 Discontinued 20 mg PO STAT ONE Simvastatin 20Mg [Zocor 20Mg] Med 09/28/21 22:00 Discontinued 40 mg PO HS Smz/Tmp Ds Tablet [Bactrim Ds Tablet] Med 09/28/21 18:56 Discontinued 1 tab PO .STK-MED ONE Smz/Tmp Ds Tablet [Bactrim Ds Tablet] Med 09/28/21 18:53 Discontinued 1 tab PO STAT STA Patient Care Notes (Last 24 hours) 09/29/21 12:42 Case Management Note by Viola Silvestre CALLED [facility]- [facility] WILL BE $42. THEY HAD TO ORDER IT AND IT WILL NOT BE IN UNTIL TOMORROW AROUND 1200. PRIMARY RN NOTIFIED- SHE WILL CHECK WITH PHARMACY TO SEE IF WE CAN SEND HOME A LIMITED AMOUNT UNTIL MED IN STOCK AT PHARMACY. PATIENT NOTIFIED OF COST OF MED- STATED THIS WOULD BE AFFORDABLE FOR HER Initialized on 09/29/21 12:42 - END OF NOTE 09/29/21 12:41 Nursing Note by Gisela Pearson [facility] and plan to get more in tomorrow, [facility] will send pt home with 2 more doses. a dose for tonight and a dose for tomorrow am. Initialized on 09/29/21 12:41 - END OF NOTE - Vitals & Intake/Output Vital Signs: Vital Signs Temperature 97.7 F 09/29/21 11:16 Pulse Rate 87 09/29/21 11:16 Respiratory Rate 16 09/29/21 11:16 Blood Pressure 129/78 09/29/21 11:16 O2 Sat by Pulse Oximetry 97 09/29/21 11:16 Intake & Output: Intake & Output 09/27/21 09/28/21 09/29/21 09/30/21 11:59 11:59 11:59 11:59 Intake Total 420 120 Output Total 450 Balance -30 120 Weight 75.1 kg 76.6 kg - Lab Result Diagrams: 09/29/21 04:30 09/29/21 04:30 Lab Results-Last 24 Hrs: Lab Results-Last 24 Hours 09/28/21 09/28/21 09/28/21 Range/Units 15:03 16:50 16:55 WBC (4.0-10.5) K/mm3 RBC (4.1-5.4) M/mm3 Hgb (12.0-16.0) gm/dl Hct (35-47) % MCV (78-100) fl MCH (26-32) pg MCHC (32-36) g/dl RDW (11.5-14.0) % Plt Count (150-450) K/mm3 MPV (7.5-11.0) fl Gran % (36.0-66.0) % Eos # (Auto) (0-0.5) Absolute Lymphs (auto) (1.0-4.6) Absolute Monos (auto) (0.0-1.3) Lymphocytes % (24.0-44.0) % Monocytes % (0.0-12.0) % Eosinophils % (0.00-5.0) % Basophils % (0.0-0.4) % Absolute Granulocytes (1.4-6.9) Basophils # (0-0.4) Sodium (137-145) mmol/L Potassium (3.5-5.1) mmol/L Chloride (98-107) mmol/L Carbon Dioxide (22-30) mmol/L Anion Gap (5-15) MEQ/L BUN (7-17) mg/dL Creatinine (0.52-1.04) mg/dL Estimated GFR ML/MIN Glucose (74-106) mg/dL Calcium (8.4-10.2) mg/dL Total Bilirubin (0.2-1.3) mg/dL AST (14-36) U/L ALT (0-35) U/L Alkaline Phosphatase (38-126) U/L Troponin I < 0.012 (0.000-0.034) ng/mL Serum Total Protein (6.3-8.2) g/dL Albumin (3.5-5.0) g/dL Urinalys Dipstick Clnc MAIN LAB Influenza Type A Ag NEGATIVE (NEGATIVE) Influenza Type B Ag NEGATIVE (NEGATIVE) RSV (PCR) NEGATIVE (Negative) SARS-CoV-2 (PCR) NEGATIVE (NEGATIVE) 09/28/21 09/28/21 09/29/21 Range/Units 18:25 21:45 01:05 WBC (4.0-10.5) K/mm3 RBC (4.1-5.4) M/mm3 Hgb (12.0-16.0) gm/dl Hct (35-47) % MCV (78-100) fl MCH (26-32) pg MCHC (32-36) g/dl RDW (11.5-14.0) % Plt Count (150-450) K/mm3 MPV (7.5-11.0) fl Gran % (36.0-66.0) % Eos # (Auto) (0-0.5) Absolute Lymphs (auto) (1.0-4.6) Absolute Monos (auto) (0.0-1.3) Lymphocytes % (24.0-44.0) % Monocytes % (0.0-12.0) % Eosinophils % (0.00-5.0) % Basophils % (0.0-0.4) % Absolute Granulocytes (1.4-6.9) Basophils # (0-0.4) Sodium (137-145) mmol/L Potassium (3.5-5.1) mmol/L Chloride (98-107) mmol/L Carbon Dioxide (22-30) mmol/L Anion Gap (5-15) MEQ/L BUN (7-17) mg/dL Creatinine (0.52-1.04) mg/dL Estimated GFR ML/MIN Glucose (74-106) mg/dL Calcium (8.4-10.2) mg/dL Total Bilirubin (0.2-1.3) mg/dL AST (14-36) U/L ALT (0-35) U/L Alkaline Phosphatase (38-126) U/L Troponin I < 0.012 < 0.012 < 0.012 (0.000-0.034) ng/mL Serum Total Protein (6.3-8.2) g/dL Albumin (3.5-5.0) g/dL Urinalys Dipstick Clnc Influenza Type A Ag (NEGATIVE) Influenza Type B Ag (NEGATIVE) RSV (PCR) (Negative) SARS-CoV-2 (PCR) (NEGATIVE) 09/29/21 09/29/21 Range/Units 04:30 04:30 WBC 7.8 (4.0-10.5) K/mm3 RBC 4.72 (4.1-5.4) M/mm3 Hgb 12.7 (12.0-16.0) gm/dl Hct 41.2 (35-47) % MCV 87.3 (78-100) fl MCH 26.9 (26-32) pg MCHC 30.8 L (32-36) g/dl RDW 16.5 H (11.5-14.0) % Plt Count 282 (150-450) K/mm3 MPV 10.6 (7.5-11.0) fl Gran % 70.1 H (36.0-66.0) % Eos # (Auto) 0.23 (0-0.5) Absolute Lymphs (auto) 1.23 (1.0-4.6) Absolute Monos (auto) 0.88 (0.0-1.3) Lymphocytes % 15.7 L (24.0-44.0) % Monocytes % 11.2 (0.0-12.0) % Eosinophils % 2.9 (0.00-5.0) % Basophils % 0.1 (0.0-0.4) % Absolute Granulocytes 5.48 (1.4-6.9) Basophils # 0.01 (0-0.4) Sodium 135 L (137-145) mmol/L Potassium 4.2 (3.5-5.1) mmol/L Chloride 104 (98-107) mmol/L Carbon Dioxide 22 (22-30) mmol/L Anion Gap 13.3 (5-15) MEQ/L BUN 13 (7-17) mg/dL Creatinine 0.62 (0.52-1.04) mg/dL Estimated GFR > 60.0 ML/MIN Glucose 98 (74-106) mg/dL Calcium 8.8 (8.4-10.2) mg/dL Total Bilirubin 0.80 (0.2-1.3) mg/dL AST 28 (14-36) U/L ALT 13 (0-35) U/L Alkaline Phosphatase 140 H (38-126) U/L Troponin I (0.000-0.034) ng/mL Serum Total Protein 7.4 (6.3-8.2) g/dL Albumin 3.8 (3.5-5.0) g/dL Urinalys Dipstick Clnc Influenza Type A Ag (NEGATIVE) Influenza Type B Ag (NEGATIVE) RSV (PCR) (Negative) SARS-CoV-2 (PCR) (NEGATIVE) Micro Results-Entire Visit: Microbiology 09/28/21 15:03 Urine Culture - Preliminary Clean Catch Midstream NO GROWTH TO DATE - Radiology Exams Ordered Rad Exams-Entire Visit: Radiology Procedures Category Date Time Status CAROTID BILATERAL [US] Routine Exams 09/29/21 20:27 Completed ECHO W/2D AND DOPPLER [US] Stat Exams 09/29/21 20:27 Taken HEAD WITHOUT CONTRAST [CT] Stat Exams 09/28/21 11:55 Completed MRA BRAIN WITHOUT CONTRAST [MRI] Stat Exams 09/28/21 12:31 Completed MRI BRAIN W/O CONTRAST [MRI] Stat Exams 09/28/21 12:30 Completed - Discharge Discharge Date: 09/29/21 Disposition: Home, Self-Care Condition: Stable Prescriptions: New Apixaban [Eliquis 5 mg Tablet] 5 mg PO BID #60 tablet Continue Ezetimibe 10 mg [Zetia 10 MG] 10 mg PO DAILY Buspirone HCl 5 mg [Buspar 5 mg] 5 mg PO BID Atorvastatin Calcium 40 mg PO QHS Clopidogrel Bisulfate [Clopidogrel] 75 mg PO DAILY Metoprolol Tartrate 25 mg [Lopressor 25MG Tab] 25 mg PO BID Quinapril HCl 10 mg [Accupril 10MG Tablet] 10 mg PO DAILY Pantoprazole Sodium 40 mg PO DAILY Nitroglycerin 0.4 mg UD Instructions: Preventing Falls in the Older Adult, Stroke (DC) Follow up with: ELENA QUINTANILLA MD [Primary Care Provider] - 10/05/21 2:45 pm ([facility])
[2021-09-29] MEDS ORDERED: ELIQUIS 2.5 MG TABLET PO SCH (22:00)
--- NOTE | 2021-10-05 12:59 | ECHO ---
DATE OF PROCEDURE: 09/29/2021 CLINICAL INFORMATION: CVA. TECHNIQUE: Transthoracic 2D and M-mode study echocardiogram. The patient underwent 2D echo, M-mode study and color flow mapping which showed borderline concentric left ventricular hypertrophy with left ventricular wall thickness of 1.2 cm with overall normal left ventricular systolic function with estimated left ventricular ejection fraction about 55%. Both atrial sizes were mildly enlarged. The right ventricle appears to be borderline in size but functioning well. The mitral valve appears to be mildly thickened however opening well without evidence of restriction. Aortic valve was also opening well without evidence of restriction, was mildly thickened however. The tricuspid valve was pliable and opening well without evidence of restriction. The pulmonic valve was not well visualized but there was no significant abnormality noted. Color flow mapping showed mild mitral regurgitation, mild to moderate tricuspid regurgitation with estimated pulmonic systolic pressure of 36 mm of Mercury. There was trace pulmonic insufficiency noted. IMPRESSION: 1) BORDERLINE CONCENTRIC LEFT VENTRICULAR HYPERTROPHY WITH NORMAL LEFT VENTRICULAR SYSTOLIC FUNCTION. 2) MILD BIATRIAL ENLARGEMENT. 3) MILD MITRAL REGURGITATION. 4) MILD TO MODERATE TRICUSPID REGURGITATION NOTED.
== END 2021-09-29 12:49 | disposition home or self-care (01) ==
LOC: ED 11:54 → MED SURG 20:23
PROVIDERS: ADMIT Family Medicine; ATTEND General Practice
DX: I63.9 Cerebral infarction, unspecified (principal); G45.8 Other transient cerebral ischemic attacks and related syndromes; N39.0 Urinary tract infection, site not specified; E78.00 Pure hypercholesterolemia, unspecified; I10 Essential (primary) hypertension; E11.9 Type 2 diabetes mellitus without complications; I48.91 Unspecified atrial fibrillation; R41.82 Altered mental status, unspecified; Z79.01 Long term (current) use of anticoagulants; Z79.899 Other long term (current) drug therapy; Z20.828 Contact with and (suspected) exposure to other viral communicable diseases
CPT/HCPCS: 0241U; 36000; 36415; 70450; 70544; 70551; 80053; 81015; 84484; 85025; 85610; 85730; 87086; 93005; 93268; 93306; 93880; 99285; 99291; G0378; A9270-GY